=== PATIENT | female | born 1985 | race Caucasian/White ===

== ENCOUNTER 2016-07-19 20:27 | Emergency (ER) | payer BC, OTHER ==
[~2016-07-19] VITALS: Ht 167.6 cm; Wt 82.0 kg
[~2016-07-19 20:27] MED LIST: IBUP800T23 PO; MEDR150P IM; METH750T2 PO; XANA0.5T PO
[2016-07-19 20:29] VITALS: BP 157/111; PULSE 114; RESP 20; TEMP 99.2; O2SAT 100
--- NOTE | 2016-07-19 20:31 | PD ---
Physical Exam Date Seen by Provider: Jul 19, 2016 Time Seen by Provider: 20:30 Narrative 30 YOWF C/O DIZZINESS TODAY. YEST WITH ABDOMINAL PAIN. LATER TODAY CP, PALPITATIONS, SOB, ANXIOUS. H/O ANXIETY. OFF MEDS SINCE JAN VSS AWAITING BED PLACEMENT Data Data Last Documented VS Vital Signs Date Time Temp Pulse Resp B/P Pulse Ox O2 Delivery O2 Flow Rate FiO2 07/19/16 20:29 99.2 114 20 157/111 100 Room Air [facility] Medical Record Reviewed: Yes Supervised Visit with GLORIA: Yes Aaron Tucker Jul 19, 2016 20:31
[2016-07-19 21:49] VITALS: BP 140/98; PULSE 92; RESP 18; O2SAT 100
--- NOTE | 2016-07-19 21:58 | PD ---
HPI Chief Complaint: Chest Pain Time Seen by Provider: 21:51 Travel History International Travel<30 days: No Contact w/Intl Traveler<30days: No Traveled to known affect area: No History of Present Illness HPI The patient is a 30-year-old female who presents to the emergency department for chest pain and shortness of breath. The patient states she developed chest pain earlier today that was substernal, sharp, nonradiating, and associated with shortness of breath. The patient states that her shortness of breath was worse with exertion, such as doing laundry, and was slightly alleviated at rest. The patient states the chest pain as sharp, nonradiating, associated shortness of breath, but she denies any nausea, vomiting, or diaphoresis. The patient does have a history of panic attacks and anxiety in the past, has been weaning her Zoloft but continues to take Xanax as needed. The patient is currently on Depo-Provera injections for control and smokes , but denies any history of pulmonary embolism or DVT. The patient denies any recent prolonged travel, hospitalizations, or surgeries. She denies any significant swelling to lower extremities, but occasionally has cramping in the left lower extremity. The patient denies any history of hypertension, hyperlipidemia, coronary artery disease, or diabetes. PFSH Past Medical History Anxiety: Yes Depression: Yes Cancer: No Cardiovascular Problems: No Diabetes: No Diminished Hearing: No Endocrine: No Gastrointestinal Disorders: Yes (HX IBS) Genitourinary: No Hepatitis: No Hiatal Hernia: No Immune Disorder: No Musculoskeletal: No Neurologic: No Psychiatric: Yes (ANXIETY) Reproductive: Yes (OVARIAN CYSTS) Respiratory: No Thyroid Disease: No ?: Not LMP: DEPO INJ Ovarian Cysts: Yes Past Surgical History Abdominal Surgery: Yes (LAP. OSWALD) AICD: No Cholecystectomy: Yes Joint Replacement: No Oral Surgery: Yes (TONSILLECTOMY) Pacemaker: No Tonsillectomy: Yes Other Surgery: Yes Social History Alcohol Use: Yes (twice per week) Tobacco Use: Yes (pack a day) Substance Use: No Allergies-Medications (Allergen,Severity, Reaction): Coded Allergies: No Known Allergies (Unverified , 07/19/16) Reported Meds & Prescriptions Reported Meds & Active Scripts Active Robaxin (Methocarbamol) 750 Mg Tab 750 Mg PO TID PRN Ibuprofen 800 Mg Tab 800 Mg PO TID PRN Reported Xanax 0.5 mg (Alprazolam) Alprazolam 0.5 mg Tab 1 Tab PO Q6H PRN Depoprovera 150 Mg Vial (Medroxyprogesterone Acetate) 150 Mg/Ml Susp 150 Mg IM Q90D Review of Systems Except as stated in HPI: all other systems reviewed are Neg General / Constitutional: No: Fever Cardiovascular: Positive: Chest Pain or Discomfort, Tachycardia, No: Diaphoresis Respiratory: Positive: Shortness of Breath, No: Cough Gastrointestinal: No: Nausea, Vomiting, Abdominal Pain Musculoskeletal: No: Myalgias, Arthralgias, Edema Neurologic: Positive: Dizziness Psychiatric: Positive: Anxiety Physical Exam Narrative GENERAL: Awake, alert, pleasant 30-year-old female who appears her stated age and is in no acute respiratory distress. SKIN: Focused skin assessment warm/dry. HEAD: Atraumatic. Normocephalic. EYES: Pupils equal and round. No scleral icterus. No injection or drainage. ENT: No nasal bleeding or discharge. Mucous membranes pink and moist. NECK: Trachea midline. No JVD. CARDIOVASCULAR: Regular rate and rhythm. No murmur appreciated. Heart rate in the 90s. RESPIRATORY: No accessory muscle use. Clear to auscultation. Breath sounds equal bilaterally. GASTROINTESTINAL: Abdomen soft, non-tender, nondistended. No rebound tenderness. MUSCULOSKELETAL: No obvious deformities. No clubbing. No cyanosis. No edema. Calves are soft bilaterally. Negative Homans sign. NEUROLOGICAL: Awake and alert. No obvious cranial nerve deficits. Motor grossly within normal limits. Normal speech. PSYCHIATRIC: Appropriate mood and affect; insight and judgment normal. Data Data Last Documented VS Vital Signs Date Time Temp Pulse Resp B/P Pulse Ox O2 Delivery O2 Flow Rate FiO2 07/19/16 23:56 84 07/19/16 23:26 18 131/92 100 Room Air 07/19/16 20:29 99.2 Orders Electrocardiogram (07/19/16 20:38) Complete Blood Count With Diff (07/19/16 21:51) Comprehensive Metabolic Panel (07/19/16 21:51) B-Type Natriuretic Peptide (07/19/16 21:51) D-Dimer (07/19/16 21:51) Act Partial Throm Time (Ptt) (07/19/16 21:51) Prothrombin Time / Inr (Pt) (07/19/16 21:51) Ckmb (Isoenzyme) Profile (07/19/16 21:51) Troponin I (07/19/16 21:51) Iv Access Insert/Monitor (07/19/16 21:51) Ecg Monitoring (07/19/16 21:51) Oximetry (07/19/16 21:51) Oxygen Administration (07/19/16 21:51) Sodium Chloride 0.9% Flush (Ns Flush) (07/19/16 22:00) Lorazepam Inj (Ativan Inj) (07/19/16 22:00) Sodium Chlor 0.9% 1000 Ml Inj (Ns 1000 M (07/19/16 22:00) Chest, Single Ap (07/19/16 ) Labs Laboratory Tests Test 07/19/16 22:01 White Blood Count 10.3 TH/MM3 Red Blood Count 4.65 MIL/MM3 Hemoglobin 15.0 GM/DL Hematocrit 43.3 % Mean Corpuscular Volume 93.1 FL Mean Corpuscular Hemoglobin 32.3 PG Mean Corpuscular Hemoglobin 34.7 % Concent Red Cell Distribution Width 13.2 % Platelet Count 338 TH/MM3 Mean Platelet Volume 8.1 FL Neutrophils (%) (Auto) 64.3 % Lymphocytes (%) (Auto) 28.0 % Monocytes (%) (Auto) 6.0 % Eosinophils (%) (Auto) 1.1 % Basophils (%) (Auto) 0.6 % Neutrophils # (Auto) 6.6 TH/MM3 Lymphocytes # (Auto) 2.9 TH/MM3 Monocytes # (Auto) 0.6 TH/MM3 Eosinophils # (Auto) 0.1 TH/MM3 Basophils # (Auto) 0.1 TH/MM3 CBC Comment DIFF FINAL Differential Comment Prothrombin Time 9.5 SEC Prothromb Time International 0.9 RATIO Ratio Activated Partial 24.7 SEC Thromboplast Time D-Dimer Quantitative (PE/DVT) 0.24 MG/L FEU Sodium Level 140 MEQ/L Potassium Level 3.6 MEQ/L Chloride Level 106 MEQ/L Carbon Dioxide Level 23.3 MEQ/L Anion Gap 11 MEQ/L Blood Urea Nitrogen 16 MG/DL Creatinine 0.92 MG/DL Estimat Glomerular Filtration 71 ML/MIN Rate Random Glucose 90 MG/DL Calcium Level 9.3 MG/DL Total Bilirubin 0.3 MG/DL Aspartate Amino Transf 20 U/L (AST/SGOT) Alanine Aminotransferase 19 U/L (ALT/SGPT) Alkaline Phosphatase 54 U/L Total Creatine Kinase 89 U/L Troponin I LESS THAN 0.02 NG/ML Total Protein 7.9 GM/DL Albumin 4.1 GM/DL [facility] Medical Decision Making Medical Screen Exam Complete: Yes Emergency Medical Condition: Yes Medical Record Reviewed: Yes Interpretation(s) EKG reveals S1Q3T3, with a rate of 87. Normal sinus rhythm. Laboratory Tests Test 07/19/16 22:01 White Blood Count 10.3 TH/MM3 Red Blood Count 4.65 MIL/MM3 Hemoglobin 15.0 GM/DL Hematocrit 43.3 % Mean Corpuscular Volume 93.1 FL Mean Corpuscular Hemoglobin 32.3 PG Mean Corpuscular Hemoglobin 34.7 % Concent Red Cell Distribution Width 13.2 % Platelet Count 338 TH/MM3 Mean Platelet Volume 8.1 FL Neutrophils (%) (Auto) 64.3 % Lymphocytes (%) (Auto) 28.0 % Monocytes (%) (Auto) 6.0 % Eosinophils (%) (Auto) 1.1 % Basophils (%) (Auto) 0.6 % Neutrophils # (Auto) 6.6 TH/MM3 Lymphocytes # (Auto) 2.9 TH/MM3 Monocytes # (Auto) 0.6 TH/MM3 Eosinophils # (Auto) 0.1 TH/MM3 Basophils # (Auto) 0.1 TH/MM3 CBC Comment DIFF FINAL Differential Comment Prothrombin Time 9.5 SEC Prothromb Time International 0.9 RATIO Ratio Activated Partial 24.7 SEC Thromboplast Time D-Dimer Quantitative (PE/DVT) 0.24 MG/L FEU Sodium Level 140 MEQ/L Potassium Level 3.6 MEQ/L Chloride Level 106 MEQ/L Carbon Dioxide Level 23.3 MEQ/L Anion Gap 11 MEQ/L Blood Urea Nitrogen 16 MG/DL Creatinine 0.92 MG/DL Estimat Glomerular Filtration 71 ML/MIN Rate Random Glucose 90 MG/DL Calcium Level 9.3 MG/DL Total Bilirubin 0.3 MG/DL Aspartate Amino Transf 20 U/L (AST/SGOT) Alanine Aminotransferase 19 U/L (ALT/SGPT) Alkaline Phosphatase 54 U/L Total Creatine Kinase 89 U/L Troponin I LESS THAN 0.02 NG/ML Total Protein 7.9 GM/DL Albumin 4.1 GM/DL Chest x-rays unremarkable. No evidence of pneumothorax. Differential Diagnosis Differential diagnosis includes pulmonary embolism, pneumothorax, GERD, esophageal spasm, myocarditis, pericarditis, acute coronary syndrome, panic attack, anxiety. Narrative Course IV was established, labs were drawn and sent, and the patient was placed on cardiac telemetry monitoring and continuous pulse oximetry monitoring. EKG was ordered and interpreted. D-dimer was ordered. Patient was administered Ativan intravenously and placed on IV fluids. D-dimer was negative, therefore, CT pulmonary angiogram was not ordered. The patient was monitored, heart rate came down into the 80s, O2 sat was 98% on room air, and the patient has a negative d-dimer. I highly doubt pulmonary embolism. Troponin is negative. EKG is unremarkable. Therefore, chest x-ray was obtained. Chest x-rays negative. The patient's vitals are stable, heart was not enlarged, no history of cardiomyopathy. Patient's symptoms may be somatization versus anxiety/panic attack. The patient is stable for outpatient follow-up with her primary physician. Diagnosis Primary Impression: Dyspnea Qualified Code: R06.00 - Dyspnea, unspecified type Additional Impression: Atypical chest pain Patient Instructions: General Instructions Additional Instructions: Please provide a patient a copy of her labs and chest x-ray results at discharge. Follow-up with her primary physician. Return if symptoms worsen or progress. Work excuse for 2 days. Med/Other Pt SpecificInfo: No Change to Meds Disposition: 01 DISCHARGE HOME Condition: Stable Kang Erickson MD Jul 19, 2016 21:58
[2016-07-19] MEDS ORDERED: LORazepam 2 MG/ML VIAL IV PUSH ONE (22:00)
[2016-07-19] MEDS ORDERED: SODIUM CHLORIDE 0.9% FLUSH 10 ML FLUSH IVF PRN (22:00)
[2016-07-19] MEDS ORDERED: SODIUM CHLOR 0.9% 1000 ML INJ 1,000 ML IV ONE (22:00)
[2016-07-19 22:10] VITALS: O2SAT 100
[2016-07-19 22:34] LABS: AUTOMATED NEUTROPHIL # 6.6 TH/MM3 (1.8-7.7); BASOPHIL # 0.1 TH/MM3 (0-0.2); BASOPHIL % 0.6 % (0.0-2.0); EOSINOPHIL # 0.1 TH/MM3 (0-0.4); EOSINOPHIL % 1.1 % (0.0-4.0); HEMATOCRIT 43.3 % (35.0-46.0); HEMO FLAGS DIFF FINAL; LYMPHOCYTE # 2.9 TH/MM3 (1.0-4.8); MEAN CELL VOLUME 93.1 FL (80.0-100.0); MEAN CORPUSCULAR HEMOGLOBIN 32.3 PG (27.0-34.0); MEAN CORPUSCULAR HGB CONC 34.7 % (32.0-36.0); NEUT % 64.3 % (16.0-70.0); PLATELET COUNT 338 TH/MM3 (150-450); RED BLOOD COUNT 4.65 MIL/MM3 (4.00-5.30); RED CELL DISTRIBUTION WIDTH 13.2 % (11.6-17.2); WHITE BLOOD COUNT 10.3 TH/MM3 (4.0-11.0)
[2016-07-19 23:05] LABS: ALKALINE PHOSPHATASE 54 U/L (45-117); ALT (GPT) 19 U/L (10-53); ANION GAP 11 MEQ/L (5-15); AST (GOT) 20 U/L (15-37); BICARBONATE 23.3 MEQ/L (21.0-32.0); BLOOD UREA NITROGEN 16 MG/DL (7-18); CHLORIDE 106 MEQ/L (98-107); GLOMERULAR FILTRATION RATE 71 ML/MIN (>89); SODIUM (NA) 140 MEQ/L (136-145); TOTAL BILIRUBIN ADULT 0.3 MG/DL (0.2-1.0)
[2016-07-19 23:06] LABS: CREATINE KINASE 89 U/L (26-192); POTASSIUM 3.6 MEQ/L (3.5-5.1)
[2016-07-19 23:17] LABS: APTT (PATIENT) 24.7 SEC (24.3-30.1); INTERNATIONAL NORMALIZED RATIO 0.9 RATIO; PROTHROMBIN TIME - PATIENT 9.5 SEC (9.8-11.6)
[2016-07-19 23:26] VITALS: BP 131/92; PULSE 84; RESP 18; O2SAT 100
[2016-07-19 23:56] VITALS: PULSE 84
--- NOTE | 2016-07-20 00:12 | RADRPT ---
EXAM DATE/TIME: 07/19/2016 23:39 [facility] COMPARISON: No previous studies available for comparison. INDICATIONS : Shortness of breath and chest tightness. MEDICAL HISTORY : None. SURGICAL HISTORY : None. ENCOUNTER: Initial ACUITY: 1 day PAIN SCORE: 2/10 LOCATION: Bilateral chest FINDINGS: A single view of the chest demonstrates the lungs to be symmetrically aerated without evidence of mas s, infiltrate or effusion. The cardiomediastinal contours are unremarkable. Osseous structures are intact. A scoliotic thoracic spine. CONCLUSION: Normal examination. Tyler Sheffield Jr., MD on July 20, 2016 at 0:10 Board Certified Radiologist. This report was verified electronically.
[2016-07-20] MEDS ORDERED: LIDOCAINE VISCOUS 2% SOLN 15 ML UDC PO ONE (00:15)
[2016-07-20] MEDS ORDERED: ALUMINUM/MAGNESIUM/SIMETH 30 ML CUP PO ONE (00:15)
--- NOTE | 2016-07-20 09:17 | EKG ---
Date Performed: 07/19/2016 Time Performed: 21:06:09 PTAGE: 30 years EKG: Sinus rhythm POSSIBLE LEFT ATRIAL ENLARGEMENT BORDERLINE ECG PREVIOUS TRACING : 07/07/2015 13.09 DOCTOR: Praveen Hughes Interpretating Date/Time 07/20/2016 09:15:10
== END 2016-07-20 00:29 | disposition home or self-care (01) ==
LOC: NEPA 20:27
DX: R06.02 Shortness of breath (principal); R07.89 Other chest pain; F41.9 Anxiety disorder, unspecified; F17.200 Nicotine dependence, unspecified, uncomplicated
CPT/HCPCS: 71010; 80053; 82550; 83880; 84484; 85025; 85379; 85610; 85730; 93005; 96361; 96374; 99285; J2060; J7030

== ENCOUNTER 2017-01-21 18:44 | Emergency (ER) | payer OTHER ==
[~2017-01-21] VITALS: Ht 167.6 cm; Wt 88.9 kg
[2017-01-21 18:46] VITALS: BP 157/102; PULSE 109; RESP 18; TEMP 98.5; O2SAT 98
--- NOTE | 2017-01-21 19:01 | PD ---
HPI Chief Complaint: Musculoskeletal Complaint Time Seen by Provider: 18:58 Travel History International Travel<30 days: No Contact w/Intl Traveler<30days: No Traveled to known affect area: No History of Present Illness HPI 31 y/f presents to the emergency department with left shoulder pain since this morning after she scratched her back. She describes an abduction and internal rotation of her shoulder. She describes the pain as throbbing, mild. Pain not associated with movement and not relieved with rest. Denies radiation of pain, numbness, tingling. 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 PFSH Past Medical History Anxiety: Yes Depression: Yes Cancer: No Cardiovascular Problems: No Diabetes: No Diminished Hearing: No Endocrine: No Gastrointestinal Disorders: Yes (HX IBS) Genitourinary: No Hepatitis: No Hiatal Hernia: No Immune Disorder: No Musculoskeletal: No Neurologic: No Psychiatric: Yes (ANXIETY) Reproductive: Yes (OVARIAN CYSTS) Respiratory: No Thyroid Disease: No ?: Not Ovarian Cysts: Yes Past Surgical History Abdominal Surgery: Yes (LAP. OSWALD) AICD: No Cholecystectomy: Yes Joint Replacement: No Oral Surgery: Yes (TONSILLECTOMY) Pacemaker: No Tonsillectomy: Yes Other Surgery: Yes Social History Alcohol Use: Yes (twice per week) Tobacco Use: Yes (pack a day) Substance Use: No Allergies-Medications (Allergen,Severity, Reaction): Coded Allergies: No Known Allergies (Unverified , 01/21/17) Reported Meds & Prescriptions Reported Meds & Active Scripts Active Robaxin (Methocarbamol) 750 Mg Tab 750 Mg PO QID 3 Days Review of Systems Except as stated in HPI: all other systems reviewed are Neg Physical Exam Narrative GENERAL: Well-developed well-nourished SKIN: Focused skin assessment warm/dry. HEAD: Atraumatic. Normocephalic. EYES: Pupils equal and round. No scleral icterus. No injection or drainage. ENT: No nasal bleeding or discharge. Mucous membranes pink and moist. NECK: Trachea midline. No JVD. CARDIOVASCULAR: Regular rate and rhythm. No murmur appreciated. RESPIRATORY: No accessory muscle use. Clear to auscultation. Breath sounds equal bilaterally. GASTROINTESTINAL: Abdomen soft, non-tender, nondistended. Hepatic and splenic margins not palpable. MUSCULOSKELETAL: No obvious deformities. No clubbing. No cyanosis. No edema. No ecchymosis. Left shoulder: TTP deltoid insertion and acromioclavicular region. Full range of motion with out clicks, crepitus, pops. NEUROLOGICAL: Awake and alert. No obvious cranial nerve deficits. Motor grossly within normal limits. Normal speech. PSYCHIATRIC: Appropriate mood and affect; insight and judgment normal. Data Data Last Documented VS Vital Signs Date Time Temp Pulse Resp B/P (MAP) Pulse Ox O2 Delivery O2 Flow Rate FiO2 01/21/17 18:46 98.5 109 18 157/102 (120) 98 Orders Orders Shoulder, Complete (>2vws) (01/21/17 ) MDM Medical Decision Making Medical Screen Exam Complete: Yes Emergency Medical Condition: Yes Differential Diagnosis Left shoulder: Strain versus sprain versus fracture Narrative Course Pt describes an abduction and internal rotation injury of her left shoulder. Because of multiple surgeries and joint injuries, will obtain xrays. Imaging: No fracture or acute process She uses the depo-Provera regularly for control. Patient has been taken Motrin and Tylenol without relief. Her pain is mainly muscular so will give muscle relaxer for symptom relief. Advised to use extreme caution when taking this medication. Advised her to follow up with ortho for further treatment and evaluation Diagnosis Primary Impression: Left shoulder pain Qualified Codes: M25.512 - Pain in left shoulder Referrals: Orthopedist Primary Care Physician Additional Instructions: Continue Motrin or Aleve per package instructions for pain relief Advised to follow up with orthopedics and primary care physician Pain persists or worsens, developed numbness or tingling return to the emergency department for further treatment and evaluation Scripts Methocarbamol (Robaxin) 750 Mg Tab 750 MG PO QID for Muscle Spasm for 3 Days, TAB 0 Refills Prov: Collin Carrero MD 01/21/17 Disposition: 01 DISCHARGE HOME Condition: Stable Allyn Todd Jan 21, 2017 19:01
--- NOTE | 2017-01-21 19:28 | RADRPT ---
EXAM DATE/TIME: 01/21/2017 19:14 [facility] COMPARISON: No previous studies available for comparison. INDICATIONS : Evaluate for possible dislocation. MEDICAL HISTORY : None. SURGICAL HISTORY : None. ENCOUNTER: Initial ACUITY: 1 day PAIN SCORE: 10/10 LOCATION: Left Shoulder FINDINGS: Multiple view examination of the left shoulder demonstrates no evidence of fracture or dislocation. The glenohumeral and acromioclavicular joints are maintained. There is normal range of motion betwee n internal and external rotation. Bony mineralization is normal. CONCLUSION: 1. No evidence for fracture or dislocation. Edwin Drew MD on January 21, 2017 at 19:26 Board Certified Radiologist. This report was verified electronically.
[2017-01-21] MEDS ORDERED: ROBA750T PO (20:14)
== END 2017-01-21 20:27 | disposition home or self-care (01) ==
LOC: PHEFT 18:44
DX: M25.512 Pain in left shoulder (principal); F17.210 Nicotine dependence, cigarettes, uncomplicated; K58.9 Irritable bowel syndrome, unspecified; Q79.6 Ehlers-Danlos syndromes; X50.1XXA Overexertion from prolonged static or awkward postures, initial encounter; Y99.8 Other external cause status
CPT/HCPCS: 73030; 99283

== ENCOUNTER 2017-03-21 14:58 | Emergency (ER) | payer OTHER ==
[~2017-03-21] VITALS: Ht 167.6 cm; Wt 88.0 kg
[~2017-03-21 14:58] MED LIST changes: -IBUP800T23 PO; -MEDR150P IM; -METH750T2 PO; +ROBA750T PO; -XANA0.5T PO
[2017-03-21 15:00] VITALS: BP 129/86
[2017-03-21 15:02] VITALS: BP 159/107; PULSE 104; RESP 21; TEMP 98.5; O2SAT 95
[2017-03-21] MEDS ORDERED: SODIUM CHLOR 0.9% 1000 ML INJ 1,000 ML IV SCH (15:45)
--- NOTE | 2017-03-21 15:45 | PD ---
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 She checked blood glucose is 135. She states that she continued to feel "off" so she checked her blood pressure and was 170/120. She also endorses accompanying palpitations, lightheadedness, diaphoresis, dull headache and nausea. She states that she feels dizzy and short of breath with movement. She endorses one -week history of cold symptoms over the last week including cough, sinus congestion, dull hearing sensation and diarrhea for about 1 week. She endorses several episodes of loose stools daily and sick contacts stating "it's going around at work." She denies dysuria, risk of , focal weakness. Headache is related to/10, bitemporal. No complain vision changes. She treated with Excedrin with no improvement of her symptoms. She is a current smoker of a half pack per day. Drinks one 24 ounce serving a coffee daily. PCP Dr. Syed. [facility] Past Medical History Anxiety: Yes Depression: Yes Cancer: No Cardiovascular Problems: No Diabetes: No Diminished Hearing: No Endocrine: No Gastrointestinal Disorders: Yes (HX IBS) Genitourinary: No Hepatitis: No Hiatal Hernia: No Immune Disorder: No Musculoskeletal: No Neurologic: No Psychiatric: Yes (ANXIETY) Reproductive: Yes (OVARIAN CYSTS) Respiratory: No Thyroid Disease: No Tetanus Vaccination: > 5 Years ?: Not Ovarian Cysts: Yes Past Surgical History Abdominal Surgery: Yes (LAP. OSWALD) AICD: No Cholecystectomy: Yes Joint Replacement: No Oral Surgery: Yes (TONSILLECTOMY) Pacemaker: No Tonsillectomy: Yes Other Surgery: Yes Social History Alcohol Use: Yes (twice per week) Tobacco Use: Yes (pack a day) Substance Use: No Allergies-Medications (Allergen,Severity, Reaction): Coded Allergies: No Known Allergies (Verified Adverse Reaction, Unknown, 03/21/17) Reported Meds & Prescriptions Reported Meds & Active Scripts Active Reported Zoloft (Sertraline HCl) 100 Mg Tab 150 Mg PO DAILY Review of Systems Except as stated in HPI: all other systems reviewed are Neg Physical Exam Narrative GENERAL: Well-nourished, well-developed nontoxic appearing white female in no acute distress. SKIN: Warm and dry. HEAD: Normocephalic. Atraumatic. EYES: No scleral icterus. No injection or drainage. PERRLA. EOMI. ENT: Pearly kruger tympanic membranes bilaterally. Nasal mucosa is moist. Oropharynx without erythema, edema or exudate. NECK: Supple, trachea midline. No JVD or lymphadenopathy. CARDIOVASCULAR: Regular rate and rhythm without murmurs, gallops, or rubs. No carotid bruits. 2+ DP and radial pulses bilaterally. RESPIRATORY: Breath sounds clear and equal bilaterally. No accessory muscle use. GASTROINTESTINAL: Abdomen soft, non-tender, nondistended. + Bowel sounds MUSCULOSKELETAL: No cyanosis, or edema. Full, active range of motion. Strength 5/5. Neurovascularly intact. NEUROLOGICAL: Awake and alert. Cranial nerves II through XII intact. Motor and sensory grossly within normal limits. Five out of 5 muscle strength in all muscle groups. Normal speech. BACK: Nontender without obvious deformity. No CVA tenderness. Data Data Last Documented VS Vital Signs Date Time Temp Pulse Resp B/P (MAP) Pulse Ox O2 Delivery O2 Flow Rate FiO2 03/21/17 19:51 03/21/17 16:26 92 17 97 Room Air 03/21/17 15:02 98.5 Orders Orders Complete Blood Count With Diff (03/21/17 15:45) Basic Metabolic Panel (Bmp) (03/21/17 15:45) Urinalysis - C+S If Indicated (03/21/17 15:45) Iv Access Insert/Monitor (03/21/17 15:45) Ecg Monitoring (03/21/17 15:45) Oximetry (03/21/17 15:45) Sodium Chlor 0.9% 1000 Ml Inj (Ns 1000 M (03/21/17 15:45) Electrocardiogram (03/21/17 15:45) Ct Brain W/O Iv Contrast(Rout) (03/21/17 ) Influenzae A/B Antigen (03/21/17 18:11) Sodium Chlorid 0.9% 500 Ml Inj (Ns 500 M (03/21/17 18:15) Lorazepam Inj (Ativan Inj) (03/21/17 19:00) Ed Discharge Order (03/21/17 19:09) Labs Laboratory Tests Test 03/21/17 16:15 White Blood Count 14.1 TH/MM3 Red Blood Count 4.49 MIL/MM3 Hemoglobin 14.1 GM/DL Hematocrit 42.0 % Mean Corpuscular Volume 93.7 FL Mean Corpuscular Hemoglobin 31.4 PG Mean Corpuscular Hemoglobin Concent 33.5 % Red Cell Distribution Width 12.9 % Platelet Count 332 TH/MM3 Mean Platelet Volume 7.4 FL Neutrophils (%) (Auto) 77.5 % Lymphocytes (%) (Auto) 17.7 % Monocytes (%) (Auto) 4.3 % Eosinophils (%) (Auto) 0.2 % Basophils (%) (Auto) 0.3 % Neutrophils # (Auto) 11.0 TH/MM3 Lymphocytes # (Auto) 2.5 TH/MM3 Monocytes # (Auto) 0.6 TH/MM3 Eosinophils # (Auto) 0.0 TH/MM3 Basophils # (Auto) 0.0 TH/MM3 CBC Comment DIFF FINAL Differential Comment Urine Color LIGHT-YELLOW Urine Turbidity CLEAR Urine pH 6.0 Urine Specific Patriot 1.011 Urine Protein NEG mg/dL Urine Glucose (UA) NEG mg/dL Urine Ketones NEG mg/dL Urine Occult Blood NEG Urine Nitrite NEG Urine Bilirubin NEG Urine Urobilinogen LESS THAN 2.0 MG/DL Urine Leukocyte Esterase SMALL Urine RBC 1 /hpf Urine WBC 4 /hpf Urine Bacteria OCC /hpf Urine Hyaline Casts 3 /lpf Urine Mucus FEW /lpf Microscopic Urinalysis Comment CULT NOT INDICATED Blood Urea Nitrogen 11 MG/DL Creatinine 0.88 MG/DL Random Glucose 94 MG/DL Calcium Level 8.9 MG/DL Sodium Level 142 MEQ/L Potassium Level 3.7 MEQ/L Chloride Level 108 MEQ/L Carbon Dioxide Level 22.5 MEQ/L Anion Gap 12 MEQ/L Estimat Glomerular Filtration Rate 74 ML/MIN [facility] Medical Decision Making Medical Screen Exam Complete: Yes Emergency Medical Condition: Yes Differential Diagnosis Viral syndrome versus arrhythmia versus anxiety versus metabolic derangement versus other Narrative Course 31 YO F presents to the ED for evaluation of an episode of dizziness, 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 She also endorses accompanying palpitations, lightheadedness, diaphoresis, dull headache and nausea. She states that she feels dizzy and short of breath with movement. She endorses one-week history of cold symptoms over the last week including cough, sinus congestion, dull hearing sensation and diarrhea for about 1 week. She endorses sick contacts stating "it's going around at work." She denies dysuria, risk of , focal weakness. Headache is rated 2/10, bitemporal. Vitals reviewed. Physical exam reveals a nontoxic-appearing white female in no acute distress. ENT exam is unremarkable. No focal neuro deficits noted on neuro exam. No appreciable N/R/G. Chest CTA B. Abdomen soft and nontender. IV was established. Patient was administered 1 L normal saline. CBC with mild leukocytosis, likely stress related. No concerning abnormalities CMP, coags. No culture indicated of the UA. EKG rate 91, sinus rhythm. Normal intervals. Normal axis. No acute ST changes. Reviewed by Dr. Carter. Head CT: No acute disease per radiology read. On recheck the patient is complaining of numbness in her foot. She is complaining of increased anxiety. She was administered additional half liter of normal saline and 1 mg Ativan IV. The patient was reassured with her lab results. We discussed anxiety is a component of her illness today. She was walked tested around the ED and demonstrated a steady gait. This is viral syndrome and anxiety. Patient's instructed to rest, push fluids, stay home from work for the next couple days, follow up with her primary care provider. She indicated understanding of the instructions. She is agreeable to the care plan. She is stable and discharged home. Diagnosis Primary Impression: Viral syndrome Additional Impression: Anxiety Referrals: Primary Care Physician Patient Instructions: Anxiety (ED), General Instructions, Viral Syndrome (ED) Departure Forms: Tests/Procedures, Work Release Enter return to work date: Mar 23, 2017 Additional Instructions: Rest, hydrate. Return to normal, gentle activities as tolerated. Follow-up with your primary care provider. Return to the ED for worsening symptoms or any urgent or emergent medical condition. Disposition: 01 DISCHARGE HOME Condition: Stable Andreia Rey Mar 21, 2017 15:45
[2017-03-21 16:26] VITALS: BP 140/82; PULSE 92; RESP 17; O2SAT 97
[2017-03-21] MEDS ORDERED: ZOLO100T PO (16:31)
[2017-03-21 16:49] LABS: BASOPHIL % 0.3 % (0.0-2.0); EOSINOPHIL % 0.2 % (0.0-4.0); HEMO FLAGS DIFF FINAL; LYMPH % 17.7 % (9.0-44.0); LYMPHOCYTE # 2.5 TH/MM3 (1.0-4.8); MEAN CELL VOLUME 93.7 FL (80.0-100.0); MEAN CORPUSCULAR HEMOGLOBIN 31.4 PG (27.0-34.0); MEAN CORPUSCULAR HGB CONC 33.5 % (32.0-36.0); MONO % 4.3 % (0.0-8.0); NEUT % 77.5 % (16.0-70.0); PLATELET COUNT 332 TH/MM3 (150-450); RED BLOOD COUNT 4.49 MIL/MM3 (4.00-5.30); RED CELL DISTRIBUTION WIDTH 12.9 % (11.6-17.2); WHITE BLOOD COUNT 14.1 TH/MM3 (4.0-11.0)
[2017-03-21 16:52] LABS: BACTERIA, URINE OCC /hpf; BLOOD, URINE NEG (NEG); COMMENT (UR) CULT NOT INDICATED; CULTURE IF INDICATED CULT NOT INDICATED; GLUCOSE,URINE NEG (NEG); HYALINE CAST, URINE 3 /lpf (RARE); KETONE, URINE NEG (NEG); MUCUS URINE FEW /lpf (OCC); NITRITE,URINE NEG (NEG); URINE COLOR LIGHT-YELLOW (YELLW/STRAW)
[2017-03-21 17:05] LABS: BICARBONATE 22.5 MEQ/L (21.0-32.0); POTASSIUM 3.7 MEQ/L (3.5-5.1)
[2017-03-21] MEDS ORDERED: SODIUM CHLORID 0.9% 500 ML INJ 500 ML IV ONE (18:15)
--- NOTE | 2017-03-21 18:30 | RADRPT ---
EXAM DATE/TIME: 03/21/2017 18:20 [place] COMPARISON: CT BRAIN W/O CONTRAST, August 30, 2015, 18:47. INDICATIONS : Patient complains of headache, elevated blood pressure. RADIATION DOSE: 37.03 CTDIvol (mGy) MEDICAL HISTORY : None SURGICAL HISTORY : Tonsillectomy. Cholecystectomy. ENCOUNTER: Initial ACUITY: 1 day PAIN SCALE: 2/10 LOCATION: cranial TECHNIQUE: Multiple contiguous axial images were obtained of the head. Using automated exposure control and adj ustment of the mA and/or kV according to patient size, radiation dose was kept as low as reasonably a chievable to obtain optimal diagnostic quality images. DICOM format image data is available electro nically for review and comparison. FINDINGS: CEREBRUM: The ventricles are normal for age. No evidence of midline shift, mass lesion, hemorrhage or acute in farction. No extra-axial fluid collections are seen. POSTERIOR FOSSA: The cerebellum and brainstem are intact. The 4th ventricle is midline. The cerebellopontine angle i s unremarkable. EXTRACRANIAL: The visualized portion of the orbits is intact. SKULL: The calvaria is intact. No evidence of skull fracture. CONCLUSION: No acute disease. John Bowser MD on March 21, 2017 at 18:27 Board Certified Radiologist. This report was verified electronically.
[2017-03-21] MEDS ORDERED: LORazepam 2 MG/ML VIAL IV PUSH ONE (19:00)
--- NOTE | 2017-03-21 22:42 | EKG ---
Date Performed: 03/21/2017 Time Performed: 16:10:38 PTAGE: 31 years EKG: Sinus rhythm NONSPECIFIC T-WAVE ABNORMALITY BORDERLINE ECG PREVIOUS TRACING : 07/19/2016 21.06 Compared to prior tracing no significant change DOCTOR: Nicole Balderas Interpretating Date/Time 03/21/2017 22:41:57
== END 2017-03-21 20:04 | disposition home or self-care (01) ==
LOC: NEPE 14:58
DX: B34.9 Viral infection, unspecified (principal); F41.9 Anxiety disorder, unspecified; R20.0 Anesthesia of skin; D72.829 Elevated white blood cell count, unspecified; R42 Dizziness and giddiness; R94.31 Abnormal electrocardiogram [ECG] [EKG]; F32.9 Major depressive disorder, single episode, unspecified; F17.200 Nicotine dependence, unspecified, uncomplicated; Z87.19 Personal history of other diseases of the digestive system
CPT/HCPCS: 70450; 80048; 81001; 85025; 93005; 96361; 96374; 99285; J2060; J7030; J7040